=== PATIENT | male | born 1945 | race Caucasian/White ===

== ENCOUNTER 2018-10-26 14:52 | Inpatient (IN) | payer OTHER ==
[~2018-10-26] VITALS: Ht 152.4 cm; Wt 104.4 kg
--- NOTE | ~2018-10-26 | HC ---
[facility] [place] [address] CONSULTATION Name: TRUE HART Room #: 454-P ADM IN M.R.#: [id number] Admission: 10/26/18 Attend Phys: Bari Lloyd MD Discharge: Date of : 47 Report #: [id number] THIS REPORT FOR: //name// CC: Cele Reyes MD [facility] Bari Lloyd MD DATE OF SERVICE: 10/27/2018 REQUESTING PHYSICIAN: Bari Lloyd MD. REASON FOR CONSULTATION: Combination of epistaxis, renal insufficiency and Pradaxa usage and elevated coags. HISTORY OF PRESENT ILLNESS: The patient is a very pleasant 73-year-old gentleman from the [place] area who has had about a week long of epistaxis and a longer history of hematuria, probably for several years. He had been followed and recently his creatinine had increased and also he notes that his hemoglobin is down to 9.2. He came to the ER yesterday. His coags were elevated with protime of 44.1, INR 4.3, APTT is 78.7. Also, about that same time we were talking, lab is white count was 10.7, hemoglobin 9.2, differential was essentially normal, MCV 95.5, and platelets of 259. In the past, his hemoglobin had been 13.3 in 2010. There are notes that his creatinine had increased from recent times over the last couple of weeks. The patient denies any headache, had had some troubles with goofiness when he is on Chantix and primidone combination earlier, better off the Chantix. Denies any vision troubles as long as he wears his glasses. Does have some ecchymosis around his eyes that he said is from hitting the table when he was sort of having a narcolepsy from the medication reaction. No swallowing trouble. No spitting up of blood. No abdominal pain. No new nausea, vomiting, diarrhea, or constipation. Does have ecchymosis on the blood thinner. No weight change. He does have blood in his urine as I mentioned, but is mostly microscopic. No ankle swelling. PAST MEDICAL HISTORY: Notable for history of hypertension, arthritis, inguinal hernia repair when he was 7 years old, cervical fusion, AFib, syncope, peripheral neuropathy, what sounds like essential tremor. Also, lower extremity stent in 2009 and hyperlipidemia. Also, low vitamin D. SOCIAL HISTORY: The patient is retired, used to be a lithographer. Drinks maybe 3 beers or 2 whiskeys a night, has maybe 2 cigarettes a day[address] No street drugs. FAMILY HISTORY: Mother and father had no cancer or blood disorders. Siblings, [facility] [address] [place] [address] CONSULTATION Name: TRUE HART Room #: 454-P [facility] IN M.R.#: [id number] Admission: 10/26/18 Attend Phys: Bari Lloyd MD Discharge: Date of : 47 Report #: [id number] a bunch with heart disease - Two brothers, one had heart disease; a sister from heart attack. Children have no health issues. still works. She is a social person according to the patient. MEDICATIONS: Described by the patient currently include he received vitamin K last night and also oxymetazoline for his nose. At home, his medications have included vitamin D, metoprolol 25, Vytorin 10/40 daily, olmesartan 40 mg daily, and enteric-coated aspirin. He also had been on the Pradaxa if I understand correctly. PHYSICAL EXAMINATION: GENERAL: The patient appears his stated age. VITAL SIGNS: Height is 5 feet 8 inches, 152.4 cm. Weight 230 pounds or 104.7 kilograms. Blood pressure is 132/73, O2 sat 95, respirations 18, pulse 59, temperature 97.7. MOOD: He is very pleasant and conversant. NEUROLOGIC: Moving all extremities. Speech and thought pattern normal. HEENT: Oropharynx clear. LUNGS: Clear. HEART: Regular rate. May have an occasional irregularity consistent with his AFib. ABDOMEN: Protuberant, obese. No masses, nontender. LYMPHATICS: No enlarged lymph nodes in the supraclavicular, cervical, axillary or inguinal region. ASSESSMENT AND PLAN: 1. Epistaxis with use of Pradaxa and increasing creatinine. Most likely decreased creatinine clearance on Pradaxa had led to over anticoagulation resulting in epistaxis. I do not think that the patient is bleeding after the reversal agent. This should decrease on its own. Even though the coags do not track very well with anticoagulation, had seen a decrease and will let us know for sure that this is getting out of his system. I talked with Dr. Lloyd about this. We will recheck coags today. 2. Renal insufficiency. Ultrasound without hydronephrosis. Renal is consulted. We will be curious to see what they say. No history of nonsteroidals. Does not appear to be volume depleted. 3. Atrial fibrillation. Defer further anticoagulation due, to Dr. Reyes. 4. Hematuria, significant microscopic hematuria. Awaiting Renal's involvement or outpatient Urology. 5. Anemia. Iron levels are drawn. Suspect iron deficiency. Could also be production. Will be followed. 6. Low albumin, questionable etiology. 7. Alcohol use. Three beers nightly or 2 scotches. Continue monitoring. 8. Tobacco history. Two cigarettes daily. Encouraged cessation. 9. Hypertension. Meds per others. 10. Tremor and neuropathy. Followed by Dr. Martinez. Sounds like it may be [facility] [address] [place] [address] CONSULTATION Name: TRUE HART Room #: 454-P [facility] IN .R.#: [id number] Admission: 10/26/18 Attend Phys: Bari Lloyd MD Discharge: Date of : 47 Report #: [id number] benign essential and benign neuropathy. 11. History of peripheral vascular disease. Had been on aspirin. We will defer to others. Will be available. By: [id number] Óscar Winn MD /nt
--- NOTE | ~2018-10-26 | HC ---
[facility] [place] [address] CONSULTATION Name: HAILEYTRUE JEAN PAUL Room #: 454-P ADM IN M.R.#: [id number] Admission: 10/26/18 Attend Phys: Bari Lloyd MD Discharge: Date of : 47 Report #: [id number] THIS REPORT FOR: //name// CC: Bari Lloyd DATE OF SERVICE: 10/27/2018 ATTENDING PHYSICIAN: Dr. Lloyd. REASON FOR CONSULTATION: Elevated creatinine. HISTORY OF PRESENT ILLNESS: This 73-year-old gentleman with a history of AFib, on Pradaxa, has received multiple cardiac medications recently including Benicar, a diuretic, primidone, Pradaxa, etc. He has developed hemorrhage, nosebleed and bleed into his sclerae. He has longstanding microscopic hematuria, but developed worsening hematuria and was admitted to the hospital. His creatinine level, which had been reasonably normal recently, has risen from 1.5 a month ago to 2.7 and 2.9 this week. PAST MEDICAL HISTORY: The patient has hypertension, longstanding, reasonably well controlled. Atrial fibrillation, which has become worsened, lately he underwent cardioversion for the last couple of months. He has had a remote lower extremity stent, cardiac angiograms which have been negative. Hernia repair and some orthopedic surgery. HOME MEDICATIONS: Recently have included Benicar, a diuretic on listed, baby aspirin. Pradaxa, which he stopped. Vytorin, metoprolol 25 mg daily, vitamin D, primidone, gabapentin and Chantix. SOCIAL HISTORY: Smokes just a few cigarettes a day, says he does inhale. He is a reasonably heavy drinker, sounds like at least three drinks per day. FAMILY HISTORY: Strongly positive for coronary artery disease and myocardial infarction. REVIEW OF SYSTEMS: GENERAL: He has been feeling reasonably well except for the recent nosebleeds and the darkening of the urine. EYES: He has had no visual changes, but he did have the scleral hemorrhage on the left. ENT: Hearing okay, swallows okay. No mouth sores. He has had a nosebleed, which was rather profuse yesterday. ENDOCRINE: Denies diabetes or thyroid problems. RESPIRATORY: No shortness of breath, wheezing, asthma, pleuritic pain. CARDIAC: No chest pain or angina. No recent palpitations since his cardioversion. [facility] [address] [place] [address] CONSULTATION Name: HAILEYTRUE Room #: 454-P [facility] IN M.R.#: [id number] Admission: 10/26/18 Attend Phys: Bari Lloyd MD Discharge: Date of : 47 Report #: [id number] GASTROINTESTINAL: No GI bleeding, hematemesis, nausea, vomiting, trouble with his digestion. GENITOURINARY: Good urinary stream without history of stones or clots. NEUROLOGIC: He has got numbness in the bottom of his feet, diagnosed as neuropathy. No seizure or syncope or stroke. MUSCULOSKELETAL: No arthritis. PHYSICAL EXAMINATION: GENERAL: This is a reasonably well-appearing gentleman, seen in his hospital room. SKIN: Unremarkable without lesions. SKELETAL: Shows him to be well developed, well nourished. HEENT: Extraocular movements are full. Vision is intact. Left scleral hemorrhage is noted. Mucous membranes moist. Tongue, buccal mucosa benign. No nosebleed at the current time. NECK: Supple, without carotid bruits. CHEST: Clear to auscultation. HEART: Regular. ABDOMEN: Soft and nontender, without bruits, masses or organomegaly. EXTREMITIES: Show no peripheral edema. Peripheral pulses are diminished bilaterally. LABORATORY DATA: The urinalysis was somewhat dilute, done yesterday and of note, he did take his diuretics yesterday. He did have some hematuria, but no proteinuria. Hemoglobin only 9.2. Sodium 136, potassium 5.5, chloride 103, bicarbonate 32, BUN 39, creatinine 2.9. Renal sonogram showed somewhat asymmetric kidneys, but reasonably well preserved cortex. No hydronephrosis. ASSESSMENT AND PLAN: 1. Elevated creatinine, unknown etiology at this time. He has been on diuretics and an ARB, had some hemorrhage. He has gotten anemic, possibly this is all prerenal and/or functional. There may be some underlying nephrosclerosis from longstanding hypertension as well. His cardiac performance, I am unclear about, but we will have Cardiology see the patient and try to get hold of his data vis-a-vis echocardiogram, etc. Currently, he is in sinus rhythm, does not seem to be any urologic issues here, at least judging by history and ultrasound results. I will leave him off most of these medications, but also will not give him any IV fluids at the current time and see how he does and recheck his labs in the morning. I do not have a specific diagnosis. I will be checking paraprotein studies and urine protein studies for completeness as well as CPK. 2. History of atrial fibrillation. 3. Longstanding hypertension. By: [id number] Rene Leigh MD /nt
[~2018-10-26 14:52] MED LIST: ASA5UEC PO; BENICAR40 MG PO; MOBIC15 MG; SIMVASTATIN40 MG PO; TOPROL XL25 MG PO; VITAMIN D400 UNI1; VYTORIN 10-401 EACH PO
[2018-10-26 15:19] VITALS: BP 117/72
[2018-10-26 15:55] LABS: ABSOLUTE NEUTROPHILS 7.4 thou/uL (1.4-8.2); BASOPHILS 0.8 % (0.0-2.0); EOSINOPHILS 4.3 % (0.0-3.0); HEMATOCRIT 26.5 % (42.0-52.0); HEMOGLOBIN 9.2 gm/dL (14.0-18.0); LYMPHOCYTES 16.5 % (24.0-44.0); MCHC 34.5 g/dL (28.0-37.0); MCV 95.5 fL (80.0-100.0); MONOCYTES 9.5 % (1.0-8.0); PLATELET COUNT 259 thou/uL (150-400); POLYS 68.9 % (36.0-66.0); RBC 2.78 mil/uL (4.50-6.00); RDW 14.9 % (10.5-14.5); WBC 10.7 thou/uL (4.0-11.0)
[2018-10-26 16:04] LABS: CALCIUM 9.1 mg/dL (8.5-10.1); CREATININE 2.9 mg/dL (0.7-1.3); POTASSIUM 5.5 mmol/L (3.5-5.1)
[2018-10-26 16:10] LABS: ALBUMIN 2.7 g/dL (3.4-5.0); DIRECT BILIRUBIN 0.1 mg/dL (<0.1-0.3); TOTAL BILIRUBIN 0.4 mg/dL (<0.1-1.0); TOTAL PROTEIN 7.5 g/dL (6.4-8.2)
[2018-10-26 16:32] LABS: URINE BILIRUBIN NEGATIVE (Negative); URINE BLOOD 3+ (Negative); URINE CLARITY CLEAR; URINE COLOR YELLOW; URINE GLUCOSE-RANDOM* NEGATIVE (Negative); URINE KETONES NEGATIVE (Negative); URINE LEUKOCYTES-REFLEX NEGATIVE (Negative); URINE NITRITE-REFLEX NEGATIVE (Negative); URINE PROTEIN (DIPSTICK) NEGATIVE (Negative); URINE SPECIFIC GRAVITY <= 1.005 (1.005-1.035); URINE UROBILINOGEN 0.2 E.U./dl (0.2-1.0)
[2018-10-26 16:46] LABS: BACTERIA-REFLEX 1-9 Few /HPF (None Seen); CASTS None Seen /LPF (None Seen); CRYSTALS None Seen /LPF (None Seen); SQUAMOUS 0-3 Few /LPF (0-3); URINE RBC >20 Many /HPF (0-2); URINE WBC-REFLEX None Seen /HPF (0-5)
[2018-10-26 16:47] LABS: APTT 78.7 Seconds (24.5-32.8); INR 4.3; PROTIME 44.1 Seconds (9.3-11.4)
[2018-10-26 18:36] VITALS: BP 130/63
[2018-10-26 18:37] VITALS: BP 125/59
[2018-10-26 19:45] VITALS: BP 161/88
[2018-10-27 05:00] VITALS: BP 132/73
[2018-10-27 08:25] VITALS: BP 150/75
[2018-10-27 09:45] LABS: % SATURATION 21 % (20-39); IRON 54 ug/dL (65-175); TIBC 257 ug/dL (250-450)
[2018-10-27 10:11] LABS: FOLIC ACID 17.5 ng/mL (8.6-58.9)
[2018-10-27 14:30] VITALS: BP 138/77
[2018-10-27 15:15] LABS: PROT/CREAT RATIO 0.4; URINE CREATININE-RANDOM* 74.7 mg/dL; URINE PROTEIN-RANDOM* 28.9 mg/dL (<11.9)
[2018-10-27] MEDS ORDERED: PACERONE 200 M200 M1 PO (16:40)
[2018-10-27] MEDS ORDERED: DILTIAZEM 24HR180 M1 PO (16:41)
[2018-10-27 19:22] VITALS: BP 129/69
[2018-10-28 04:16] VITALS: BP 129/72
[2018-10-28 05:56] LABS: APTT 48.3 Seconds (24.5-32.8); PROTIME 13.3 Seconds (9.3-11.4)
[2018-10-28 06:02] LABS: INR 1.3
[2018-10-28 06:06] LABS: ALBUMIN 2.5 g/dL (3.4-5.0); CALCIUM 8.6 mg/dL (8.5-10.1); CREATININE 2.3 mg/dL (0.7-1.3); PHOSPHORUS 3.8 mg/dL (2.5-4.9); POTASSIUM 5.2 mmol/L (3.5-5.1); TOTAL BILIRUBIN 0.3 mg/dL (<0.1-1.0)
[2018-10-28 10:55] VITALS: BP 130/79
[2018-10-28 11:41] VITALS: BP 130/79
[2018-10-30 13:10] LABS: KAPPA FREE LIGHT CHAINS 175.9 mg/L (3.3-19.4); KAPPA/LAMBDA RATIO 0.81 (0.26-1.65); LAMBDA FREE LIGHT CHAINS 217.6 mg/L (5.7-26.3)
[2018-10-30 17:08] LABS: GLOBULIN TOTAL 4.1 g/dL (2.2-3.9); M-SPIKE Not Observed g/dL (Not Observed)
== END 2018-10-28 11:28 | disposition home or self-care (01) | DRG 813 ==
LOC: ER 14:52 → EROBS 18:26 → 4W 18:26
PROVIDERS: Emergency Medicine; Family Medicine; Internal Medicine Nephrology
PROC: 2Y41X5Z Packing of Nasal Region using Packing Material (ICD-10-PCS; principal; 2018-10-26)
DX: D68.9 Coagulation defect, unspecified (principal); E43 Unspecified severe protein-calorie malnutrition; I42.9 Cardiomyopathy, unspecified; N17.9 Acute kidney failure, unspecified; H11.32 Conjunctival hemorrhage, left eye; M19.90 Unspecified osteoarthritis, unspecified site; E78.00 Pure hypercholesterolemia, unspecified; N18.9 Chronic kidney disease, unspecified; R04.0 Epistaxis; F17.210 Nicotine dependence, cigarettes, uncomplicated; G62.9 Polyneuropathy, unspecified; E78.5 Hyperlipidemia, unspecified; D64.9 Anemia, unspecified; I12.9 Hypertensive chronic kidney disease with stage 1 through stage 4 chronic kidney disease, or unspecified chronic kidney disease; R25.1 Tremor, unspecified; I73.9 Peripheral vascular disease, unspecified; I25.10 Atherosclerotic heart disease of native coronary artery without angina pectoris; I48.0 Paroxysmal atrial fibrillation; E87.5 Hyperkalemia; R31.29 Other microscopic hematuria; Z28.21 Immunization not carried out because of patient refusal; Z88.6 Allergy status to analgesic agent; Z82.49 Family history of ischemic heart disease and other diseases of the circulatory system; Z98.49 Cataract extraction status, unspecified eye; Z79.01 Long term (current) use of anticoagulants
CPT/HCPCS: 10045

== ENCOUNTER 2019-02-22 20:41 | Emergency (ER) | payer OTHER ==
[~2019-02-22] VITALS: Ht 182.9 cm; Wt 98.0 kg
[~2019-02-22 20:41] MED LIST changes: +DILTIAZEM 24HR180 M1 PO; +PACERONE 200 M200 M1 PO
[2019-02-22] MEDS ORDERED: DEMADEX20 MG PO (21:08)
[2019-02-22] MEDS ORDERED: GABAPENTIN 100100 MG PO (21:09)
[2019-02-22] MEDS ORDERED: CRESTOR20 MG PO (21:09)
[2019-02-23 00:10] VITALS: BP 157/83
== END 2019-02-23 00:12 | disposition home or self-care (01) ==
LOC: ER 20:41
DX: S82.435A Nondisplaced oblique fracture of shaft of left fibula, initial encounter for closed fracture (principal); M51.36 Other intervertebral disc degeneration, lumbar region; F17.210 Nicotine dependence, cigarettes, uncomplicated; I10 Essential (primary) hypertension; M19.90 Unspecified osteoarthritis, unspecified site; I48.91 Unspecified atrial fibrillation; E78.00 Pure hypercholesterolemia, unspecified; Z88.5 Allergy status to narcotic agent; W18.39XA Other fall on same level, initial encounter; Y92.89 Other specified places as the place of occurrence of the external cause; Y93.89 Activity, other specified; Y99.8 Other external cause status

== ENCOUNTER → 2019-03-13 | Outpatient (CLI) | payer OTHER ==
[~2019-03-13] MED LIST changes: +CRESTOR20 MG PO; +DEMADEX20 MG PO; +GABAPENTIN 100100 MG PO
== END ==
LOC: MRI 10:39
DX: M47.816 Spondylosis without myelopathy or radiculopathy, lumbar region (principal); M40.294 Other kyphosis, thoracic region; Z88.5 Allergy status to narcotic agent

== ENCOUNTER → 2019-03-21 | Outpatient (CLI) | payer OTHER ==
[~2019-03-21] VITALS: Ht 182.9 cm; Wt 97.5 kg
[~2019-03-21] MED LIST changes: +FOLIC ACID1 MG PO; +K-DUR 20 MEQ T20 MEQ PO; +NEURONTIN 300300 M1 PO; +PRIMIDONE50 MG PO
[2019-03-21 11:22] VITALS: BP 136/83
--- NOTE | 2019-03-21 11:45 | NUR ---
Pain Clinic Assessment: 1. History of Osteoarthritis: History of Rheumatoid Arthritis: 2. Height: 6 ft. 0 in. 182.9 cm. Weight: 215.0 lb. oz. 97.524 kg. Patient's BMI: 29.2 3. Vital Signs: BP: 136/83 Pulse: 86 Resp: 16 Temp: 02 Sat: 96 ECG Mon: 4. Pain Intensity: 4 5. Fall Risk: Dizziness: Y Needs help standing or walking: Y Fallen in the last 3 months: Y Fall risk comments: 6. Patient on Blood Thinner: None 7. History of Hypertension: N 8. Opioid Therapy greater than 6 weeks: N Opiate Contract Signed: 9. Risk Assessment Tool Provided: 10. Functional Assessment Tool: 11. Recreational Drug Use: Never Drug Type: Tobacco Use: Current Every Day Smoker Tobacco Type: Cigarettes Amount or Packs/day: 0.5 How Many Years: 50 Alcohol Use: Yes Frequency: Daily Quant: 4-5 A DAY VARIES
--- NOTE | 2019-04-03 07:40 | HPC ---
[facility] [place] [address] PAIN MANAGEMENT CONSULTATION Name: HAILEYTRUE JEAN PAUL [id number] Admission: 03/21/19 ������������������ Attend Phys: Mahesh Swan DO Discharge: ������������������ Date of : 47 Report #: [id number] THIS REPORT FOR: //name// CC: Mahesh Lloyd MD DATE OF SERVICE: 03/21/2019 CHIEF COMPLAINT: Low back pain, left lower extremity pain with paresthesias. HISTORY OF PRESENT ILLNESS: As you know, the patient is a 73-year-old male who began experiencing back pain, left lower extremity pain with paresthesias after a fall he sustained on 02/15/2019. The patient states that prior to this incident, he was in his normal state of health. He has trialed conservative medication therapy, utilized [id number] treatments and ultimately sought evaluation with his PCP, Dr. Bari Lloyd. The patient did not show improvement in symptoms with more conservative treatment options including home stretching program that was physician-directed. Even with these options of treatment, the patient did not seem to notice significant improvement. He was subsequently referred to our clinic after undergoing MRI of the lumbar spine, which showed changes at the L4-L5 level that was concerning to the primary care team. The patient indicates today pain is brief in its presentation. He describes the pain as shooting. He places current pain score 4/10, daily average at 4/10, worst pain has been at 9/10. The patient states that standing for any length of time, sitting for any length of time tends to exacerbate symptoms, sitting and repositioning tends to improve pain. He has been referred to our service to discuss treatment options for potential lumbar radiculopathy. PAST MEDICAL HISTORY: 1. Hypertension. 2. Coronary artery disease. 3. Chronic obstructive pulmonary disease. 4. Degenerative joint disease. 5. Osteoarthritis. 6. Tobacco habituation. PAST SURGICAL HISTORY: 1. Herniorrhaphy. 2. Cervical spine surgery. 3. Coronary artery stenting. 4. Carpal tunnel release. 5. Rotator cuff repair. 6. Cataract repairs. [facility] [address] [place] [address] PAIN MANAGEMENT CONSULTATION Name: TRUE HART [id number] Admission: 03/21/19 ������������������ Attend Phys: Mahesh Swan DO Discharge: ������������������ Date of : 47 Report #: [id number] SOCIAL HISTORY: The patient continues to smoke half pack of tobacco per day and has done so for multiple years. Denies IV or illicit drug use. Admits to approximately 4-5 alcoholic beverages per day. He is not working, not receiving workmen's compensation. He is unaccompanied at today's visit. REVIEW OF SYSTEMS: Positive for wearing corrective eyewear, hearing loss with tinnitus, shortness of breath with walking and lying flat, heart trouble, requiring percutaneous stenting, bleeding and bruising tendencies, chronic obstructive pulmonary disease, hypertension and degenerative joint disease. All other review of systems negative per 12-point review of systems other than those listed in history of present illness. Pain impact score 33/70 indicating moderate interference of daily activities secondary to pain. ALLERGIES: CODEINE. CURRENT MEDICATIONS: Folic acid 1 mg per day, potassium chloride 20 mEq per day, primidone 50 mg once a day, gabapentin 300 mg once a day, rosuvastatin 20 mg per day, diltiazem CD 180 mg once a day, amiodarone 200 mg once a day, Vytorin 10/40 one tab per day, aspirin 325 mg per day. IMAGING: MRI lumbar spine obtained 03/13/2019 shows T12-L1 unremarkable. L1-L2 shows unremarkable, L2-L3 mild broad-based disk bulge, mild ligamentum flavum hypertrophy, no central canal nor neural foraminal stenosis. L3-L4 degenerative facet disease, mild ligamentum flavum hypertrophy, no central canal nor neural foraminal stenosis. L4-L5 no disk herniation or lateralizing components. Sagittal images suggest bulging in the left disk extending under the exiting L4 nerve root on the left. This produces mild impingement upon the exiting nerve root. L5-S1 intact, mild broad-based disk bulge, no central canal nor neural foraminal stenosis. PQRS: The patient has no known osteoarthritic changes of the lumbar spine, bilateral hips and knees. No rheumatoid arthritis. He is placing pain intensity 4/10. He is a fall risk and has had a fall in the last 3 months. He does not use any type of ambulatory device, though he has been advised to trial. He is not on blood thinners. He is treated for dyslipidemia. He is treated for hypertension. He is not on chronic opioids. He does have moderate to high opioid addiction potential. He is placing pain impact score 33/70 indicating moderate interference of daily activities secondary to pain. PHYSICAL EXAMINATION: VITAL SIGNS: Blood pressure 136/83, pulse 86, respiratory rate 16 and unlabored. The patient is 96% on room air, height 6 feet tall, weight 215 pounds, BMI calculated 29.2. [address] [address] PAIN MANAGEMENT CONSULTATION Name: TRUE HART Room #: REG EN [place]#: [id number] Admission: 03/21/19 ������������������ Attend Phys: Mahesh Swan DO Discharge: ������������������ Date of : 47 Report #: [id number] GENERAL: Well-developed, well-nourished, well-hydrated 73-year-old male appearing stated age, placing current pain score 4/10. HEENT: Normocephalic, atraumatic. Pupils are equal, round, reactive to light. Extraocular muscles are intact. Sclerae nonicteric without injection. The patient deemed a good historian. LUNGS: Decreased breath sounds bilaterally, prolonged expiratory phase. There is no wheezing, rhonchi or rales. CARDIOVASCULAR: Appears regular. No gallop, no rub. ABDOMEN: Soft, nontender, mildly obese, normoactive bowel sounds. EXTREMITIES: Show no clubbing, no cyanosis, and no edema. MUSCULOSKELETAL: Lower extremity strength appears symmetrical 5/5. He is intact to light touch from L1 through S2 dermatomes. Seated straight leg raising negative. Supine straight leg raising mildly positive on the left at approximately 60 degrees. Ankle clonus negative. Babinski is negative. Muscle bulk and tone is symmetrical when comparing left lower extremity to right. Gait mildly antalgic favoring left lower extremity over right. Stance is slightly forward flexed of lumbar spine. Deep tendon reflexes are symmetrical at patella and Achilles, 1+/4 bilaterally. Lumbar provocation testing is met with increased axial back pain, no radiation of symptoms. ASSESSMENT: 1. Symptomatic lumbar radiculopathy. 2. Displacement of lumbar intervertebral disk with radiculopathy. 3. Lumbosacral spondylosis with radiculopathy. 4. Facet arthropathy of the lumbar spine. 5. Chronic intractable pain. PLAN: 1. The patient has been referred to our service by his primary care physician, Dr. Bari Lloyd, for evaluation for suspected lumbar radiculopathy. It does appear the patient is suffering from some radicular component involving the left lower extremity along the L4 nerve root. This correlates with the finding at the L4 level. We discussed with the patient treatment options for lumbar radiculopathy as well as the axial back pain due to facet arthropathy. The following was discussed with the patient today. 2. We discussed physical therapy, stretching exercises, core strengthening as a treatment option. We discussed medication management with neuropathic pain medication and consistent nonsteroidal anti-inflammatory. We discussed lumbar epidural injections under fluoroscopic guidance, spinal cord stimulator therapy and surgical options to address lumbar radicular symptoms. We also discussed intra-articular facet injections, medial branch nerve blocks and radiofrequency lesioning as a treatment option for the facet arthropathy pain. After reviewing the risks and benefits of all proposed treatment options, the patient chose to remain conservative and trial exercise stretching techniques initially and if this does not improve, then move forward with a lumbar epidural injection. [address] [address] PAIN MANAGEMENT CONSULTATION Name: TRUE HART Room #: REG EN [place]#: [id number] Admission: 03/21/19 ������������������ Attend Phys: Mahesh Swan DO Discharge: ������������������ Date of : 47 Report #: [id number] We did discuss with the patient today that if he wishes to undergo a lumbar epidural injection, we will need to begin the prior authorization process. He has requested that we do so. We will begin the authorization process immediately and once we have this authorization completed, we will contact the patient to have him return to undergo the first in a series of lumbar epidural injections to address his lumbar radicular symptoms secondary to the findings at the L4-L5 level. Once this authorization has been obtained, we will contact the patient to have him return to undergo the procedure. 3. No medication changes made at today's visit. The patient will continue current medical therapy as previously prescribed. 4. We will see the patient back in followup visit once we have the authorization for him to undergo a lumbar epidural injection under fluoroscopic guidance. We have advised the patient to continue the stretching exercises that he was given by his primary care physician at home and continue these on at least twice a day basis. We will see him back once we have the authorization to undergo the epidural injection requested. 5. We wish to thank Dr. Bari Lloyd for the opportunity to see the patient in consultation. We will keep you apprised of his response to treatment as we address suspected lumbar radiculopathy. Again, we wish to thank you for the opportunity to see the patient in consultation. ��������������������������������������������� <ELECTRONICALLY SIGNED> ���������������������������������������� By: Mahesh Swan DO ��������������������������������������������� 04/03/19 0740 [id number] Mahesh Swan DO /nt
== END ==
LOC: PAIN 07:19
DX: M47.27 Other spondylosis with radiculopathy, lumbosacral region (principal); G89.4 Chronic pain syndrome; R20.2 Paresthesia of skin; I10 Essential (primary) hypertension; I25.10 Atherosclerotic heart disease of native coronary artery without angina pectoris; M19.90 Unspecified osteoarthritis, unspecified site; J44.9 Chronic obstructive pulmonary disease, unspecified; Z72.0 Tobacco use; Z98.890 Other specified postprocedural states; Z88.8 Allergy status to other drugs, medicaments and biological substances

== ENCOUNTER → 2019-04-03 | Outpatient (CLI) | payer OTHER ==
[~2019-04-03] VITALS: Ht 182.9 cm; Wt 102.5 kg
[2019-04-03 12:51] VITALS: BP 149/83
--- NOTE | 2019-04-03 13:02 | NUR ---
Pain Clinic Assessment: 1. History of Osteoarthritis: History of Rheumatoid Arthritis: 2. Height: 6 ft. 0 in. 182.9 cm. Weight: 226.0 lb. oz. 102.513 kg. Patient's BMI: 30.6 3. Vital Signs: BP: 149/83 Pulse: 65 Resp: 16 Temp: 02 Sat: 94 ECG Mon: 4. Pain Intensity: 5-6 5. Fall Risk: Dizziness: N Needs help standing or walking: N Fallen in the last 3 months: N Fall risk comments: 6. Patient on Blood Thinner: None 7. History of Hypertension: N 8. Opioid Therapy greater than 6 weeks: N Opiate Contract Signed: 9. Risk Assessment Tool Provided: 10. Functional Assessment Tool: 11. Recreational Drug Use: Never Drug Type: Tobacco Use: Current Every Day Smoker Tobacco Type: Cigarettes Amount or Packs/day: How Many Years: Alcohol Use: Yes Frequency: Quant:
--- NOTE | 2019-04-10 08:15 | HPC ---
[facility] [place] [address] PAIN MANAGEMENT CONSULTATION Name: HAILEYTRUE HAWKMOND [facility] #: [facility] [id number] Admission: 04/03/19 ������������������ Attend Phys: Mahesh Swan DO Discharge: ������������������ Date of : 49 Report #: [id number] THIS REPORT FOR: //name// CC: Mahesh Lloyd MD DATE OF SERVICE: 04/03/2019 REFERRING PHYSICIAN: Bari Lloyd MD. CHIEF COMPLAINT: Low back pain, left lower extremity pain with paresthesias. HISTORY OF PRESENT ILLNESS: As you know, the patient is a 73-year-old male who began experiencing low back pain, left lower extremity pain and paresthesias after he sustained a fall on 02/15/2019. Prior to this, he states he was in his normal state of health. He was seen in consultation per the request of Dr. Bari Lloyd for changes noted at the L4-L5 level concerning the primary team as a possible source of lumbar radiculopathy. He is seen in consultation 03/21/2019 where he was diagnosed with lumbar radiculopathy, displacement of lumbar intervertebral disk with radicular symptoms and typical facet arthropathy pain and lumbosacral spondylosis contributing to symptoms. We discussed at that visit treatment options available for his symptoms. These would include physical therapy, stretching exercise, core strengthening. We discussed medication management utilizing neuropathic pain medications and consistent nonsteroidal anti-inflammatory. We discussed lumbar epidural injections under fluoroscopic guidance for which the patient was referred to our clinic, spinal cord stimulator therapy and ultimately surgical options. The patient at that initial visit chose conservative route, wishing to discuss his case further before moving forward treatment options. He returns today in followup visit where we have received preauthorization for the patient to undergo a lumbar epidural injection. At this point, he wishes to discuss more conservative options as he does not wish to undergo the epidural injection at this time despite the fact that he is placing pain score 5-6/10. He denies injury or trauma since our last visit has led to progression of pain. ALLERGIES: CODEINE. CURRENT MEDICATIONS: Folic acid 1 mg per day, potassium chloride 20 mEq p.o. q. day, primidone 50 mg per day, gabapentin 300 mg once a day, rosuvastatin 20 mg per day, diltiazem CD 180 mg per day, amiodarone 200 mg once a day, Vytorin 10/40 one tab per day, aspirin 325 mg per day. SOCIAL HISTORY: The patient continues to smoke, reporting about half pack to 1 pack tobacco per day, he has done so for years. Denies IV or illicit drug use. He admits to approximately 4 alcoholic beverages to 5 [place] [address] PAIN MANAGEMENT CONSULTATION Name: TRUE HART Room #: REG CLSal Bradley#: [id number] Admission: 04/03/19 ������������������ Attend Phys: Mahesh Swan DO Discharge: ������������������ Date of : 49 Report #: [id number] day. He is not working, not receiving workmen's compensation, unaccompanied today. He does have some tremors that are concerning for essential tremor or possibly even Wernicke-Korsakoff. IMAGING: There is no new imaging available. PQRS: The patient has no known osteoarthritic changes of the lumbar spine, bilateral hips, and bilateral knees. No rheumatoid arthritis. He is placing pain intensity today 5-6/10. Not a fall risk, does not have a fall in the last 3 months. He is not on blood thinners. He is treated for hypertension. He is not on opioids. He has a medium to high level of opioid addiction potential. Pain impact score is 40/70, moderate interference of daily activities secondary to pain. PHYSICAL EXAMINATION: VITAL SIGNS: Blood pressure 149/83, pulse 65, respiratory rate 16 and unlabored. The patient is 94% on room air, height 6 feet tall, weight 226 pounds, BMI calculated 30.6. GENERAL: Well-developed, well-nourished, well-hydrated, 73-year-old male appearing stated age, placing current pain score 5-6/10. HEENT: Normocephalic, atraumatic. Pupils equal, round, reactive to light. EXTREMITIES: Show no clubbing, no cyanosis, no edema. There are noted tremors in the bilateral hands, left appears greater than right. MUSCULOSKELETAL: Lower extremity strength is symmetrical 5/5. Muscle bulk and tone appears symmetrical in comparing left lower extremity to right. Seated straight leg raise negative. Supine straight leg mildly positive on the left. ASSESSMENT: 1. Symptomatic lumbar radiculopathy. 2. Displacement of lumbar intervertebral disk with radiculopathy. 3. Lumbosacral spondylosis with radiculopathy. 4. Facet arthropathy of the lumbar spine. 5. Chronic intractable pain. PLAN: 1. The patient has returned today in followup visit where he has decided he would like to begin with physical therapy, stretching exercises and core strengthening as a treatment option. He would then look forward to either medication management or epidural injections if the physical therapy is not effective. He wishes to remain as conservative as possible initially. We agree with the patient and will make adjustments in his treatment, providing a referral today. 2. The patient was provided referral to physical therapy twice a week for 6 weeks. The patient will begin this process immediately. Once he has completed the formalized physical therapy, he is then to transition over to his local gym utilizing his redIT program to continue this exercise activity. We [address] [address] PAIN MANAGEMENT CONSULTATION Name: TRUE HART Room #: REG [facility] Mirna#: [id number] Admission: 04/03/19 ������������������ Attend Phys: Mahesh Swan DO Discharge: ������������������ Date of : 49 Report #: [id number] recommend that the patient to continue this activity as he will see improvement in symptoms and this improvement is based on his physical activity. 3. We made no changes in the patient's medication management. We did discuss the possibility of escalating the dose of gabapentin further to provide more neuropathic pain control. At this time, the patient wishes to delay any changes in therapy from a medication standpoint. 4. We have received preauthorization for the patient to undergo a lumbar epidural injection. At this point, the patient wishes to hold on this injection until he has a chance to undergo physical therapy and see if he gains effect. If he does so, he is hopeful that he will not need to undergo an epidural injection. I did advise the patient if he did wish to undergo an epidural injection, we would need to reapply for authorization, though this should be much more rapid now that we have had met their criteria for the initial injection. We will make adjustments in our treatment based on efficacy with the physical therapy. 5. We will see the patient back in followup visit on an as needed basis. ��������������������������������������������� <ELECTRONICALLY SIGNED> ���������������������������������������� By: Mahesh Swan DO ��������������������������������������������� 04/10/19 0815 0901 1937 Mahesh Swan DO /nt
== END ==
LOC: PAIN 06:50
DX: G89.29 Other chronic pain (principal); M51.16 Intervertebral disc disorders with radiculopathy, lumbar region; M47.27 Other spondylosis with radiculopathy, lumbosacral region; F17.210 Nicotine dependence, cigarettes, uncomplicated; Z88.5 Allergy status to narcotic agent; Z79.899 Other long term (current) drug therapy; Z79.891 Long term (current) use of opiate analgesic

== ENCOUNTER → 2020-08-13 | Outpatient (CLI) | payer OTHER | LOC: SJCVCIMAG 10:24 | PROVIDERS: ATTEND Internal Medicine Cardiovascular Disease | DX: I08.2 Rheumatic disorders of both aortic and tricuspid valves (principal); I45.10 Unspecified right bundle-branch block; I11.9 Hypertensive heart disease without heart failure; R94.31 Abnormal electrocardiogram [ECG] [EKG]; E78.00 Pure hypercholesterolemia, unspecified; I48.91 Unspecified atrial fibrillation; I73.9 Peripheral vascular disease, unspecified; J44.9 Chronic obstructive pulmonary disease, unspecified; F17.210 Nicotine dependence, cigarettes, uncomplicated; Z79.899 Other long term (current) drug therapy; Z82.49 Family history of ischemic heart disease and other diseases of the circulatory system ==

== ENCOUNTER 2020-10-06 12:46 | Inpatient (IN) | payer OTHER ==
[~2020-10-06] VITALS: Ht 182.9 cm; Wt 85.3 kg
[2020-10-06 12:48] VITALS: BP 91/50
[2020-10-06 14:49] LABS: ABSOLUTE NEUTROPHILS 12.4 thou/uL (1.4-8.2); BASOPHILS 0.2 % (0.0-2.0); HEMATOCRIT 34.9 % (42.0-52.0); HEMOGLOBIN 11.4 gm/dL (14.0-18.0); LYMPHOCYTES 7.7 % (24.0-44.0); MCH 28.2 pg (26.0-34.0); MCHC 32.7 g/dL (28.0-37.0); MCV 86.2 fL (80.0-100.0); MONOCYTES 2.3 % (1.0-8.0); PLATELET COUNT 194 thou/uL (150-400); POLYS 89.8 % (36.0-66.0); RBC 4.04 mil/uL (4.50-6.00); RDW 15.6 % (10.5-14.5); WBC 13.8 thou/uL (4.0-11.0)
[2020-10-06 15:03] LABS: ANION GAP 8 mmol/L (7-16); BUN 24 mg/dL (7-18); CALCIUM 8.9 mg/dL (8.5-10.1); CHLORIDE 99 mmol/L (98-107); CO2 27 mmol/L (21-32); CREATININE 1.9 mg/dL (0.7-1.3); GLUCOSE 110 mg/dL (74-106); POTASSIUM 4.4 mmol/L (3.5-5.1); SODIUM 134 mmol/L (136-145)
[2020-10-06 15:14] LABS: ALBUMIN 2.8 g/dL (3.4-5.0); MAGNESIUM 1.8 mg/dL (1.8-2.4); SGOT 36 U/L (15-37); SGPT 13 U/L (30-65); TOTAL BILIRUBIN 0.7 mg/dL (0.2-1.0); TOTAL PROTEIN 8.1 g/dL (6.4-8.2); TROPONIN-I <0.06 ng/mL (<0.06)
[2020-10-06 15:21] LABS: BE(vivo) -1.4 mmol/L (-2 to +3); HCO3 24.1 mmol/L (22.0-26.0); PCO2 43.7 mmHg (35.0-45.0); pH 7.359 (7.360-7.450); sO2 87.5 % (92.0-98.0)
[2020-10-06 15:22] LABS: PO2 55.2 mmHg (80.0-100.0)
--- NOTE | 2020-10-06 15:45 | EKG ---
[facility] [place] [address] ELECTROCARDIOGRAM REPORT Name: TRUE HART Room #: REG [facility].#: [id number] Admission: 10/06/20 Attend Phys: Discharge: Date of : 49 Report #: [id number] THIS REPORT FOR: cc: Bari Lloyd MD, Neal A. MD Santiago, Patrick MD [facility] ~ THIS REPORT FOR: //name// [facility] ED Test Date: 2020-10-06 Test Time: 14:53:24 Pat Name: TRUE HART Department: Room: Gender: Regroover: esheets : 1945 Requested By: Feliciano Rodriguez Order Number: [id number] MD: Vishnu Conner Measurements Intervals [place] Rate: 55 P: 26 MO: 159 QRS: -39 QRSD: 161 T: 36 QT: 459 QTc: 439 Interpretive Statements Sinus rhythm Right bundle branch block Baseline wander in lead(s) V2,V4 Compared to ECG 06/20/2013 13:02:10 Right bundle-branch block now present Electronically Signed On 10-06-2020 15:45:40 [employer]CR[employer] MOUNT[employer] by Vishnu Conner [email or web address] <ELECTRONICALLY SIGNED> By: Vishnu Conner MD, FAC 10/06/20 1545 1453 1453 Vishnu Conner MD, [facility] /EPI
[2020-10-06 23:36] LABS: URINE BILIRUBIN NEGATIVE (Negative); URINE BLOOD 3+ (Negative); URINE CLARITY CLEAR; URINE COLOR YELLOW; URINE GLUCOSE-RANDOM* NEGATIVE (Negative); URINE KETONES NEGATIVE (Negative); URINE LEUKOCYTES-REFLEX NEGATIVE (Negative); URINE NITRITE-REFLEX NEGATIVE (Negative); URINE PROTEIN (DIPSTICK) NEGATIVE (Negative); URINE SPECIFIC GRAVITY <= 1.005 (1.005-1.035); URINE UROBILINOGEN 0.2 E.U./dl (0.2-1.0)
[2020-10-06 23:53] LABS: BACTERIA-REFLEX 1-9 Few /HPF (None Seen); CALCIUM OXALATE 0-3 Few /LPF (None Seen); CASTS None Seen /LPF (None Seen); MUCUS 0-3 Light strn/LPF (None Seen); SQUAMOUS 0-3 Few /LPF (0-3); URINE WBC-REFLEX 0-5 Rare /HPF (0-5)
[2020-10-07] VITALS (9 sets, daily range): BP systolic 104–161; BP diastolic 49–74
[2020-10-07 09:02] LABS: HEMATOCRIT 30.9 % (42.0-52.0); MCH 28.3 pg (26.0-34.0); MCHC 32.4 g/dL (28.0-37.0); MCV 87.3 fL (80.0-100.0); RBC 3.54 mil/uL (4.50-6.00); RDW 16.2 % (10.5-14.5); WBC 8.2 thou/uL (4.0-11.0)
--- NOTE | 2020-10-07 21:34 | NUR ---
SENT HANDOFF TO 3W
--- NOTE | 2020-10-07 22:46 | NUR ---
HANDOFF TOOLS SENT TO 4W
[2020-10-08 01:00] VITALS: BP 142/74
--- NOTE | 2020-10-08 02:48 | NUR ---
Pt admitted from ED at 2345 with PNA. A/OX4, very pleasant. Reports he's hard of hearing on the right ear and has hearing loss on the left ear;no hearing aids.Wears glasses. VSS. Up ad onel w/o any problems. Tremors noted on lillian arms,states r/t neuropathy. C/o a headache medicated with Tylenol and effective. Denies SOA,has a non productive cough, LS coarse and diminished. Sinus kaelyn on telemetry. Pt encouraged to call for help as needed and agrees to do so. Resting quietly at this time,with Oxygen in place at 2L/NC.
[2020-10-08 07:25] VITALS: BP 137/67
[2020-10-08] MEDS ORDERED: CEFUROXIME500 MG PO (09:53)
--- NOTE | 2020-10-08 10:25 | NUR ---
PT ADMITTED RELATED TO PNEUMONIA. CM REVIEWED CHART AND SPOKE WITH CARE TEAM. CM CALLED AND SPOKE WITH PT OVER THE PHONE THIS DAY. PT APPEARED TO BE A&O X4. CM ROLE INTRODUCED. PT INDICATED HE LIVES IN A HOUSE WITH HIS WITH 2 STEPS TO ENTER AND A FULL FLIGHT OF STEPS INSIDE. 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 HE INDICATED NO NEB OR O2 COOK SUPERVISOR. HE INDICATED NO HH HX. PT INDICATED HE PLANS TO RETURN HOME ONCE MEDICALLY STABLE. CARE TEAM INDICATED PT IS MEDICALLY STABLE TO DC HOME THIS DAY. PT IS AWARE AND AGREEABLE. HE INDICATED PT'S WILL PROVIDE TRANSPORT HOME. PT IS TO DC HOME TO SELF CARE. NO OTHER CM INTERVENTION INDICATED. CASE CLOSED.
--- NOTE | 2020-10-08 12:44 | NUR ---
ASSUMED PT CARE THIS AM. PT VSS, A&OX4. PT PLEASANT, COOPERATIVE WITH STAFF. PT AMBULATORY TO BATHROOM. COMPLAINS OF NO PAIN. IV PATENT. PT HAS GOOD APPETITE, ENCOURAGED TO DRINK FLUIDS. PT REFUSED SCD'S, BUT AMBULATES WELL. NO COMPLAINTS OF HEADACHE OR CHILLS.
[2020-10-08 13:06] VITALS: BP 137/67
== END 2020-10-08 15:00 | disposition home or self-care (01) | DRG 871 ==
LOC: ER 12:46 → 4W 17:19 → EROBS 17:19 → 4W 10-07 23:37
PROVIDERS: Emergency Medicine; ADMIT Hospitalist; ATTEND Hospitalist
DX: A41.9 Sepsis, unspecified organism (principal); J18.9 Pneumonia, unspecified organism; J96.00 Acute respiratory failure, unspecified whether with hypoxia or hypercapnia; G93.41 Metabolic encephalopathy; I95.9 Hypotension, unspecified; I10 Essential (primary) hypertension; F17.210 Nicotine dependence, cigarettes, uncomplicated; Z20.828 Contact with and (suspected) exposure to other viral communicable diseases; Z98.42 Cataract extraction status, left eye; Z98.41 Cataract extraction status, right eye; Z79.899 Other long term (current) drug therapy; Z88.5 Allergy status to narcotic agent
CPT/HCPCS: 10045

== ENCOUNTER → 2021-05-14 | Outpatient (CLI) | payer OTHER ==
[~2021-05-14] MED LIST changes: +CEFUROXIME500 MG PO
== END ==
LOC: SJCVCIMAG 07:39
PROVIDERS: ATTEND Internal Medicine Cardiovascular Disease
DX: I70.203 Unspecified atherosclerosis of native arteries of extremities, bilateral legs (principal); R94.31 Abnormal electrocardiogram [ECG] [EKG]; I45.10 Unspecified right bundle-branch block; I25.10 Atherosclerotic heart disease of native coronary artery without angina pectoris; I48.0 Paroxysmal atrial fibrillation; I10 Essential (primary) hypertension; E78.00 Pure hypercholesterolemia, unspecified; I35.0 Nonrheumatic aortic (valve) stenosis; J44.9 Chronic obstructive pulmonary disease, unspecified; M19.90 Unspecified osteoarthritis, unspecified site; F17.210 Nicotine dependence, cigarettes, uncomplicated; Z95.820 Peripheral vascular angioplasty status with implants and grafts; Z88.5 Allergy status to narcotic agent; Z79.82 Long term (current) use of aspirin; Z79.899 Other long term (current) drug therapy

== ENCOUNTER → 2021-08-10 | Outpatient (CLI) | payer OTHER | LOC: SJCVC 12:51 | PROVIDERS: ATTEND Internal Medicine Cardiovascular Disease | DX: R94.31 Abnormal electrocardiogram [ECG] [EKG] (principal); I45.10 Unspecified right bundle-branch block; I25.10 Atherosclerotic heart disease of native coronary artery without angina pectoris; E78.00 Pure hypercholesterolemia, unspecified; I10 Essential (primary) hypertension; I73.9 Peripheral vascular disease, unspecified; I35.0 Nonrheumatic aortic (valve) stenosis; R06.02 Shortness of breath; I48.91 Unspecified atrial fibrillation; R25.1 Tremor, unspecified; R53.83 Other fatigue; F17.210 Nicotine dependence, cigarettes, uncomplicated; Z79.82 Long term (current) use of aspirin; Z88.5 Allergy status to narcotic agent ==

== ENCOUNTER → 2021-08-13 | Outpatient (CLI) | payer OTHER | LOC: SJCVCIMAG 10:51 | PROVIDERS: ATTEND Internal Medicine Cardiovascular Disease | DX: I25.10 Atherosclerotic heart disease of native coronary artery without angina pectoris (principal); R06.00 Dyspnea, unspecified; I48.0 Paroxysmal atrial fibrillation; J44.9 Chronic obstructive pulmonary disease, unspecified; E78.00 Pure hypercholesterolemia, unspecified; J18.9 Pneumonia, unspecified organism; I73.9 Peripheral vascular disease, unspecified; F17.210 Nicotine dependence, cigarettes, uncomplicated; Z88.5 Allergy status to narcotic agent; Z79.82 Long term (current) use of aspirin; Z79.899 Other long term (current) drug therapy ==

== ENCOUNTER 2021-09-06 10:35 | Emergency (ER) | payer OTHER ==
[~2021-09-06] VITALS: Ht 182.9 cm; Wt 78.0 kg
[2021-09-06] MEDS ORDERED: ASA81BEC PO (11:22)
[2021-09-06] MEDS ORDERED: FLOMAX0.4 MG PO (11:23)
[2021-09-06] MEDS ORDERED: PROPRANOLOL 4040 MG PO (11:24)
[2021-09-06] MEDS ORDERED: OMEPRAZOLE 20 M20 M1 PO (11:24)
[2021-09-06 11:30] LABS: ABSOLUTE NEUTROPHILS 1.7 thou/uL (1.4-8.2); BASOPHILS 0.4 % (0.0-2.0); EOSINOPHILS 0.8 % (0.0-3.0); HEMATOCRIT 33.8 % (42.0-52.0); HEMOGLOBIN 10.9 gm/dL (14.0-18.0); LYMPHOCYTES 45.6 % (24.0-44.0); MCH 29.3 pg (26.0-34.0); MCHC 32.1 g/dL (28.0-37.0); MCV 91.1 fL (80.0-100.0); MONOCYTES 6.6 % (1.0-8.0); PLATELET COUNT 186 thou/uL (150-400); POLYS 46.6 % (36.0-66.0); RBC 3.71 mil/uL (4.50-6.00); WBC 3.5 thou/uL (4.0-11.0)
[2021-09-06 11:36] LABS: URINE BILIRUBIN NEGATIVE (Negative); URINE BLOOD 3+ (Negative); URINE CLARITY CLEAR; URINE COLOR YELLOW; URINE GLUCOSE-RANDOM* NEGATIVE (Negative); URINE KETONES NEGATIVE (Negative); URINE LEUKOCYTES-REFLEX NEGATIVE (Negative); URINE NITRITE-REFLEX NEGATIVE (Negative); URINE PROTEIN (DIPSTICK) NEGATIVE (Negative)
[2021-09-06 11:39] LABS: CALCIUM 8.7 mg/dL (8.5-10.1); CREATININE 1.3 mg/dL (0.7-1.3); POTASSIUM 4.2 mmol/L (3.5-5.1)
[2021-09-06 11:45] LABS: TOTAL BILIRUBIN 0.6 mg/dL (0.2-1.0); TOTAL PROTEIN 7.6 g/dL (6.4-8.2)
[2021-09-06 12:01] LABS: CASTS None Seen /LPF (None Seen); SQUAMOUS 0-3 Few /LPF (0-3); URINE RBC 3-10 Few /HPF (NONE SEEN); URINE WBC-REFLEX 0-5 Rare /HPF (0-5)
[2021-09-06 12:02] LABS: BACTERIA-REFLEX 1-9 Few /HPF (None Seen); CRYSTALS None Seen /LPF (None Seen); YEAST-REFLEX Present (None Seen)
[2021-09-06 15:34] VITALS: BP 106/55
--- NOTE | 2021-09-07 07:33 | EKG ---
[place] [address] [address] [place] [address] ELECTROCARDIOGRAM REPORT Name: TRUE HART Room #: [facility] [id number] Admission: 09/06/21 Attend Phys: Discharge: 09/06/21 Date of : 49 Report #: [id number] [facility] ED Test Date: 2021-09-06 Test Time: 11:43:21 Pat Name: TRUE HART Department: Room: Gender: Human Resource Assistant: : 1945 Requested By: Marcial Andino Order Number: [id number] MD: Vishnu Conner Measurements Intervals [place] Rate: 51 P: 67 [place]: 158 QRS: -28 QRSD: 146 T: 33 QT: 479 QTc: 442 Interpretive Statements Sinus rhythm Right bundle branch block Compared to ECG 10/06/2020 14:53:24 No significant changes Electronically Signed On 09-07-2021 7:32:40 CDT by Vishnu Conner [email or web address] <ELECTRONICALLY SIGNED> By: Vishnu Conner MD, [facility] 09/07/21 0732 1143 1143 Vishnu Conner MD, FACC /EPI
== END 2021-09-06 15:37 | disposition short-term general hospital (02) ==
LOC: ER 10:35
PROVIDERS: Emergency Medicine
DX: I71.4 Abdominal aortic aneurysm, without rupture (principal); Z20.822 Contact with and (suspected) exposure to COVID-19; I72.3 Aneurysm of iliac artery; R10.32 Left lower quadrant pain; G62.9 Polyneuropathy, unspecified; I10 Essential (primary) hypertension; I48.0 Paroxysmal atrial fibrillation; E78.5 Hyperlipidemia, unspecified; I73.9 Peripheral vascular disease, unspecified; I25.10 Atherosclerotic heart disease of native coronary artery without angina pectoris; F17.210 Nicotine dependence, cigarettes, uncomplicated; Z88.5 Allergy status to narcotic agent; Z79.82 Long term (current) use of aspirin; Z79.899 Other long term (current) drug therapy; Z79.891 Long term (current) use of opiate analgesic

== ENCOUNTER → 2021-10-08 | Outpatient (CLI) | payer OTHER ==
[~2021-10-08] MED LIST changes: +ASA81BEC PO; +FLOMAX0.4 MG PO; +OMEPRAZOLE 20 M20 M1 PO; +PROPRANOLOL 4040 MG PO
[2021-10-09 01:06] LABS: IgG 1269 mg/dL (603-1613)
[2021-10-09 02:06] LABS: IgA 1101 mg/dL (61-437); IgM 19 mg/dL (15-143)
[2021-10-09 20:09] LABS: M-SPIKE Not Observed g/dL (Not Observed)
[2021-10-10 05:14] LABS: BETA-2 MICROGLOBULIN NG/ML 3.7 mg/L (0.6-2.4)
== END | disposition home or self-care (01) ==
LOC: LAB 10-01 12:01
PROVIDERS: ATTEND Internal Medicine
DX: R53.83 Other fatigue (principal); D64.89 Other specified anemias; Z79.899 Other long term (current) drug therapy